=== PATIENT | female | born 1945 | race Caucasian/White ===

== ENCOUNTER 2019-07-15 15:03 | Observation (INO) ==
[2019-07-15] MEDS ORDERED: SODIUM CHLORIDE 0.9% 500 ML IV SCH (16:45)
[2019-07-15 17:20] LABS: Basophils # (auto) 0.03 K/uL (0-0.2); Basophils % (auto) 0.6 %; Eosinophils # (auto) 0.14 K/uL (0-0.5); Eosinophils % (auto) 2.8 %; Hematocrit (blood only) 35.2 % (37-47); Hemoglobin 12.1 g/dL (12.0-16.0); Immature Granulocytes # (auto) 0.01 K/uL (0.00-0.02); Immature Granulocytes % (auto) 0.2 %; Lymphocytes % (auto) 33.9 %; Mean Corpuscular Hemoglobin 30.3 pg (25-34); Mean Corpuscular Hgb Conc 34.4 g/dL (32-36); Mean Corpuscular Volume 88.2 fL (80-100); Mean Platelet Volume 9.5 fL (7.4-10.4); Monocytes # (auto) 0.63 K/uL (0.11-0.59); Monocytes % (auto) 12.6 %; Neutrophils % (auto) 49.9 %; Platelet Count 299 K/uL (130-400); RDW Coefficient of Variation 13.2 % (11.5-14.5); RDW Standard Deviation 42.3 fL (36.4-46.3); Red Blood Count 3.99 M/uL (4.2-5.4); White Blood Count 5.01 K/uL (4.8-10.8)
[2019-07-15 17:32] LABS: Prothrombin Time 10.3 Seconds (9.0-12.0)
[2019-07-15 17:45] LABS: Alanine Aminotransferase 17 U/L (12-78); Albumin Level 3.2 gm/dl (3.4-5.0); Aspartate Aminotransferase 17 U/L (15-37); BUN Creatinine Ratio 27.3 (10-20); Bilirubin Direct 0.1 mg/dl (0-0.2); Blood Urea Nitrogen 14 mg/dl (7-18); Calcium 9.2 mg/dl (8.5-10.1); Carbon Dioxide 29 mmol/L (21-32); Chloride 105 mmol/L (98-107); Creatinine Clr Calc Pharmacy 96.6 ml/min; Est GFR (Non-African American) 94.1; Glucose 99 mg/dl (70-99); Lipase 120 U/L (73-393); Magnesium 2.1 mg/dl (1.8-2.4); Sodium 140 mmol/L (136-145)
--- NOTE | 2019-07-15 17:45 | XRay Report ---
XR chest 1V portable CLINICAL HISTORY: 73 years-old Female presenting with Chest Pain. TECHNIQUE: Portable upright AP view of the chest was obtained. COMPARISON: 07/10/2019. FINDINGS: Atherosclerosis of the aortic arch. Cardiac silhouette mildly enlarged. Minimal left basilar opacitie s. No pleural effusion or pneumothorax. Degenerative changes of the thoracic spine. Upper abdomen nor mal. IMPRESSION: 1. Minimal left basilar opacities likely atelectasis or scarring. No convincing evidence of acute ca rdiopulmonary disease. Electronically signed by: Tavon Fuchs M.D. 07/15/2019 5:44 PM
[2019-07-15 17:47] LABS: Albumin Globulin Ratio 0.9 (0.9-2); Alkaline Phosphatase 99 U/L (45-117); Bilirubin,Total 0.4 mg/dl (0.2-1); Globulin 3.7 gm/dl (2.5-4.0); Phosphorus 3.3 mg/dl (2.5-4.9); Total Protein 6.9 gm/dl (6.4-8.2); Troponin I < 0.015 ng/ml (0-0.045)
[2019-07-15 18:03] LABS: Appearance Urine Clear (Clear); Bacteria Urine Automated Negative (Negative); Bilirubin Urine Negative (Negative); Blood Urine Negative (Negative); Color Urine Yellow; Glucose Urine UA Negative (Negative); Ketones Urine Negative (Negative); Leukocyte Esterase Urine Trace (Negative); Nitrite Urine Negative (Negative); Protein Urine Negative (Negative); RBC Urine Automated 0-4 /hpf (0-4); Specific Gravity Urine 1.012 (1.000-1.030); Urobilinogen Urine Negative (Negative); pH Urine 5.5 (4.5-7.5)
[2019-07-15 18:19] LABS: Lyme Ab IgG w/WB Rflx Negative (Negative); Lyme Ab IgM w/WB Rflx Negative (Negative)
[2019-07-15] MEDS ORDERED: GADOBUTROL 65ML VIAL IV PRN (18:31)
--- NOTE | 2019-07-15 18:51 | Magnetic Resonance Report ---
MR brain wo/w con CLINICAL HISTORY: 73 years-old Female presenting with ataxia, recent fall. TECHNIQUE: Multisequence, multiplanar MR imaging of the brain was performed before and after the admi nistration of intravenous contrast. IV contrast: 7.4 mL of Gadavist. COMPARISON: Noncontrast CT head from 07/10/2019. FINDINGS: Localizer images: Unremarkable. Bone marrow signal intensity within the calvarium within normal limits. Normal midline sagittal structures. Proportional ventricular and sulcal prominence, likely age-relate d parenchymal volume loss. No mass effect or midline shift. No restricted diffusion or hemorrhage. Br ain parenchyma normal in appearance with preserved harley-white differentiation. No abnormal parenchyma l enhancement. No extra-axial fluid collection. T2 skull base flow voids preserved. IMPRESSION: 1. No acute intracranial pathology. No abnormal enhancement. Electronically signed by: Tavon Fuchs M.D. 07/15/2019 6:48 PM
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
[2019-07-15] MEDS ORDERED: ONDANSETRON INJ 2 MG/ML 2 ML VIAL IV PRN (22:26)
[2019-07-15] MEDS ORDERED: ALUMINUM/MAGNESIUM SUSP 30 ML UDC PO PRN (22:26)
[2019-07-15] MEDS ORDERED: ACETAMINOPHEN 325 MG TAB PO PRN (22:26)
[2019-07-15] MEDS ORDERED: POLYETHYLENE (MIRALAX) 17 GM PACK PO PRN (22:26)
[2019-07-15] MEDS ORDERED: MAGNESIUM HYDROXIDE SUSP 30 ML UDC PO PRN (22:26)
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
[2019-07-16] MEDS ORDERED: cefTRIAXone SODIUM 1,000 MG in DEXTROSE 5% 50 ML IV SCH
[2019-07-16] MEDS ORDERED: ATORVASTATIN 20 MG TAB PO SCH (09:00)
[2019-07-16] MEDS ORDERED: DULOXETINE HCL 60 MG CAP PO SCH (09:00)
[2019-07-16] MEDS ORDERED: HEPARIN SOD 5,000 UNIT/0.5 ML VIAL SQ SCH (09:00)
[2019-07-16] MEDS ORDERED: MUPIROCIN 2% OINT 22 GM TUBE TOP SCH (09:00)
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
--- NOTE | 2019-07-16 16:01 | Discharge Summary ---
Date of Service July 16, 2019 Admission HPI Per Admitting Provider The patient is a 73-year-old female who presents to the emergency department with complaints of progressively worsening ability to ambulate, requiring a walker. She presently being treated for a left lower extremity skin infection with doxycycline, which she feels is getting better. This is her fifth presentation to the emergency department recently, with previous dates: 06/18, 06/21, 06/30, 07/10, and today 07/15. She had been encouraged to be admitted previous visit on 07/10, but reportedly rejected that idea. Her is gone at the time of my assessment, and she is able to contribute little to the cause of her progressive difficulty with walking. She reports that she is been eating and drinking okay, has not had normal bowel movements and urine function, and denies any issues with pains in head or spine, or generalized body pains. Again, she is able to contribute little to her HPI and review of systems, as she seems almost too weak to do so. Principal Diagnosis Ambulatory dysfunction Discharge Exam Constitutional WD/WN, vitals as above Eyes PERRL, conjunctivae normal, anicteric sclerae ENMT external ear and nose normal, oropharynx normal Neck trachea midline, no thyromegaly Respiratory normal respiratory effort, lungs clear to auscultation Cardiovascular RRR, no murmur, no edema Gastrointestinal (Abdomen) normal bowel sounds, soft, nontender, no hepatosplenomegaly Musculoskeletal no cyanosis or clubbing, extremities motor strength 5/5 Skin no rashes, warm and dry Neurologic patellar DTR's 2+ bilat, sensation intact and PERRL, EOMI, accommodation nl, no face palsy, no dysarthria Motor/Sensory: + tremor (resting, more in left hand) and + abnormal movement (bradykinesia, especially when standing up and then initiating gait) Gait: + shuffling gait Psychiatric Orientation: alert and oriented x 3 Affect: + anxious affect and + irritable affect Lymphatic no cervical or axillary lymphadenopathy Discharge Data Allergies Allergy/AdvReac Type Severity Reaction Status Date / Time topiramate Allergy Unknown UNKNOWN Unverified 07/15/19 16:08 Penicillins AdvReac Unknown Unknown Unverified 07/15/19 16:08 Sulfa (Sulfonamide AdvReac Unknown Unknown Unverified 07/15/19 16:08 Antibiotics) Consultations 07/15/19 19:07 ED Decision to Admit Stat 07/15/19 22:26 Consult Case Management - Discharge Planning Routine 07/16/19 10:33 Consult Neurology Routine Ordered Studies 07/15/19 16:36 MR brain wo/w con Stat Hospital Course (1) Frequent falls: The patient presents to the emergency department for the fifth time since June 18 with issues related to falling and generalized weakness. She is not able to contribute significantly to her HPI or review of systems. She did have an MRI of the brain which was negative for stroke or acute disease. She did have a previous CT of the head done on 07/10/2019 which showed atrophy and microvascular ischemic changes. She did have a negative Lyme test Her CBC with differential, chemistry profile and urinalysis were normal as well. MRI of the cervical spine and lumbar spine were ordered by patient refused to stay for these tests on exam she has some mild symptoms of Parkinson's disease such as bradykinesia, shuffling to her gait, resting tremor she has a family history of Parkinson's disease on both sides of her family evaluated by Dr. Villalta, certainly Parkinson's could be a possible explanation for her falls strongly encouraged patient to follow up with a neurologist in [place] she could not stay in the hospital because she and her were leaving that day for [place] which is were they reside permanently they were staying in a hotel here in [place] (2) Ambulatory dysfunction: See above no obvious etiology found on imaging and lab work consider a movement disorder such as Parkinson's disease as strong possibility again, told patient to follow up with neurologist in [place] (3) Generalized weakness: See above (4) Neuropathy: pregabalin (5) Depression: continue Duloxetine (6) Cellulitis of left lower extremity: finish course of Doxycycline infection appears to be well controlled (7) Hyperlipidemia: Continue atorvastatin 20 mg every morning (8) Allergic rhinitis: Continue fexofenadine 100 mg p.o. at bedtime, or substitution formulary. Total Time Total Time Spent Total Time Spent (In Minutes): 32 minutes Total Time Includes: Examination of the Patient, Discharge Planning, Medication Reconciliation and Communication With Other Providers (long discussion with Dr. Villalta) Discharge Plan Discharge Items Patient Disposition: Home - Self-Care Reason For Visit: CELLULITIS OF LEFT LOWER EXTREMITY,LE WEAKNESS Discharge Diagnosis: Frequent falls, unclear etiology Resolving cellulitis of left lower extremity Condition: Good Discharge Goals: Diagnostic testing and Specific goals Specific Goals: need to follow up with physician in [place], need to continue work up Activity: Per Instructions section Lifting: None Bathing: No limitations Exercise/Sports: Gradually increase as tolerated Driving/Machine Use: Resume 3 days after discharge Non-emergency contact: Primary Care Provider Call non-emergency contact if: you have any medication questions and your symptoms worsen Follow-up/Referrals: Ruddy Fuentes [Primary Care Provider] - Diet: Regular Addtl Provider Instructions: Medications: no changes, finish course of Doxycycline as prescribed Frequent falls no clear etiology at this time MRI brain negative for stroke, Lyme testing negative, CBC and CMP normal vitals stable recommend that you follow up with a primary care physician in [place], establish with a neurologist if needed consider MRI of the cervical and lumbar spine in [place] to rule out nerve impingement continue to use rolling walker at all times, ambulate with Prescriptions: Continued doxycycline hyclate 100 mg Capsule 100 mg PO BID RF: 0 atorvastatin [Lipitor] 20 mg Tablet 20 mg PO QAM RF: 0 fexofenadine [Jaylin Allergy] 180 mg Tablet 180 mg PO HS RF: 0 mupirocin calcium 2 % Cream 1 applic TOPICAL BID RF: 0 duloxetine 60 mg capsule,delayed release(DR/EC) PO UD RF: 0 pregabalin [Lyrica] 200 mg capsule PO BID RF: 0 Stand-Alone Forms: [facility] Discharge Orders: Discharge Order (Routine); Ordered 07/16/19 Ordered By: Isaías Jackson Admission Data Admit Date/Time: 07/15/19 21:26 Attending Provider: Isaías Jackson Admit Provider: Yasmani Ireland Primary Care Provider: Ruddy Fuentes Other Providers: Yasmani Ireland ; Gaudencio Villalta III Service: Medical Other Interventions: Discharge Summary Assessment (RN) Last Done: 07/16/19 09:16 DC Date/Time DO NOT enter until pt leaves facility: 07/16/19 09:34
[2019-07-16] MEDS ORDERED: FEXOFENADINE HCL 180 MG TAB PO SCH (21:00)
== END 2019-07-16 09:34 | disposition home or self-care (01) ==
LOC: 4W 15:03 → ED 15:03 → SUATTDRO 21:26 → 4W 21:58